=== PATIENT | female | born 1985 | race American Indian/Alaskan Native ===

== ENCOUNTER 2020-07-28 11:30 | Emergency (ER) | payer MEDICAID ==
[2020-07-28 11:45] VITALS: BP 119/82
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
== END 2020-07-28 15:21 | disposition home or self-care (01) ==
LOC: ED 11:30
DX: S12.500A Unspecified displaced fracture of sixth cervical vertebra, initial encounter for closed fracture (principal); M54.5 Low back pain; Z79.899 Other long term (current) drug therapy; V49.49XA Driver injured in collision with other motor vehicles in traffic accident, initial encounter; Y93.89 Activity, other specified; Y92.410 Unspecified street and highway as the place of occurrence of the external cause; Y99.8 Other external cause status
CPT/HCPCS: 72040; 72100